=== PATIENT | female | born 1995 | race African-American/Black ===

== ENCOUNTER 2018-04-19 18:04 | Emergency (ER) | payer OTHER ==
[~2018-04-19] VITALS: Ht 162.6 cm; Wt 64.5 kg
[2018-04-19] MEDS ORDERED: ESCI10TA10 PO (18:26)
[2018-04-19 20:14] VITALS: BP 133/89
== END 2018-04-19 20:16 | disposition home or self-care (01) ==
LOC: ED 20:10
DX: R51 Headache (principal)
CPT/HCPCS: 70450; 99284